=== PATIENT | male | born 2000 | race Caucasian/White ===

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

== ENCOUNTER 2021-05-10 11:51 | Emergency (ER) | payer OTHER, MEDICAID ==
[~2021-05-10] VITALS: Ht 177.8 cm; Wt 72.4 kg
[2021-05-10 11:52] VITALS: BP 137/93
[2021-05-10] MEDS ORDERED: SERT50TA29 (12:04)
[2021-05-10] MEDS ORDERED: BUSP5TA (12:04)
== END 2021-05-10 17:08 | disposition home or self-care (01) ==
LOC: M ED 11:51
DX: H57.02 Anisocoria (principal); F17.200 Nicotine dependence, unspecified, uncomplicated; F17.290 Nicotine dependence, other tobacco product, uncomplicated; F12.10 Cannabis abuse, uncomplicated; Z88.0 Allergy status to penicillin

== ENCOUNTER → 2021-07-25 | Outpatient (CLI) | payer OTHER, MEDICAID ==
[~2021-07-25] MED LIST: BUSP5TA; SERT50TA29
== END ==
LOC: M WUC 11:21
PROVIDERS: ATTEND Physician Assistant
DX: M25.521 Pain in right elbow (principal)

== ENCOUNTER 2023-05-03 02:25 | Emergency (ER) | payer OTHER, MEDICAID ==
[~2023-05-03] VITALS: Ht 180.3 cm; Wt 80.0 kg
[2023-05-03] MEDS ORDERED: DOXYCYCLINE HYCLATE 100 MG in D5W MINI-BAG PLUS 100 ML IV ONE (07:35)
[2023-05-03] MEDS ORDERED: metroNIDAZOLE 500 MG in IV 1 EA IV ONE (07:35)
[2023-05-03] MEDS ORDERED: LIDOCAINE W/EPINEPHRINE 1% 20ML VIAL SC ONE (07:40)
[2023-05-03] MEDS ORDERED: BACITRACIN OINTMENT 30GM TUBE TOP ONE (08:45)
[2023-05-03] MEDS ORDERED: DOXY-443 PO (09:28)
[2023-05-03] MEDS ORDERED: METR-369 PO (09:28)
[2023-05-03 10:29] VITALS: BP 138/94; TEMP 98; O2SAT 98
== END 2023-05-03 10:35 | disposition home or self-care (01) ==
LOC: M ED 02:25
DX: S01.501A Unspecified open wound of lip, initial encounter (principal); W54.0XXA Bitten by dog, initial encounter; Y92.9 Unspecified place or not applicable; Z88.0 Allergy status to penicillin; Z88.1 Allergy status to other antibiotic agents; F17.210 Nicotine dependence, cigarettes, uncomplicated
CPT/HCPCS: 96365; 96366; 96372; 99284; J1836

== ENCOUNTER 2023-05-05 15:57 | Emergency (ER) | payer OTHER, SELFPAY ==
[~2023-05-05] VITALS: Ht 182.9 cm; Wt 76.1 kg
[~2023-05-05 15:57] MED LIST changes: +DOXY-443 PO; +METR-369 PO
[2023-05-05] MEDS ORDERED: RABIES IMMUNE GLOBULIN 1500 INTERNATIONAL UNIT/5ML VIAL IM.IMMUN ONE ×2 (18:25→18:35)
[2023-05-05] MEDS ORDERED: RABIES VACCINE HUMAN 2.5 INTERNATIONAL UNITS/ML VIAL IM.IMMUN ONE (18:25)
[2023-05-05] MEDS ORDERED: DOXYCYCLINE HYCLATE 100MG TABLET PO ONE (18:40)
[2023-05-05] MEDS ORDERED: metroNIDAZOLE (FLAGYL) 500MG TABLET PO ONE (18:40)
[2023-05-05 19:33] VITALS: BP 151/90; TEMP 98.6; O2SAT 100
== END 2023-05-05 19:34 | disposition home or self-care (01) ==
LOC: M ED 15:57
DX: Z29.14 Encounter for prophylactic rabies immune globulin (principal)

== ENCOUNTER 2023-05-15 11:13 | Emergency (ER) | payer OTHER ==
[~2023-05-15] VITALS: Ht 180.3 cm; Wt 78.5 kg
[2023-05-15 11:14] VITALS: BP 116/64; TEMP 98.8; O2SAT 99
[2023-05-15] MEDS ORDERED: RABIES VACCINE HUMAN 2.5 INTERNATIONAL UNITS/ML VIAL IM ONE (11:25)
== END 2023-05-15 12:02 | disposition home or self-care (01) ==
LOC: M ED 11:13
DX: Z29.14 Encounter for prophylactic rabies immune globulin (principal); Z88.0 Allergy status to penicillin; Z88.1 Allergy status to other antibiotic agents; Z88.8 Allergy status to other drugs, medicaments and biological substances

== ENCOUNTER 2023-05-22 17:33 | Emergency (ER) | payer OTHER ==
[~2023-05-22] VITALS: Ht 182.9 cm; Wt 79.8 kg
[2023-05-22 19:57] VITALS: BP 111/74; TEMP 98.4; O2SAT 98
[2023-05-22] MEDS ORDERED: RABIES VACCINE HUMAN 2.5 INTERNATIONAL UNITS/ML VIAL IM ONE (20:15)
== END 2023-05-22 20:35 | disposition home or self-care (01) ==
LOC: M ED 17:33
DX: Z20.3 Contact with and (suspected) exposure to rabies (principal); F17.200 Nicotine dependence, unspecified, uncomplicated; Z88.0 Allergy status to penicillin; Z23 Encounter for immunization; Z29.14 Encounter for prophylactic rabies immune globulin

== ENCOUNTER 2023-08-04 00:24 | Emergency (ER) | payer MEDICAID, OTHER ==
[~2023-08-04] VITALS: Ht 182.9 cm; Wt 83.1 kg
[2023-08-04 00:24] VITALS: BP 155/87; TEMP 98; O2SAT 100
== END 2023-08-04 01:56 | disposition left against medical advice (07) ==
LOC: M ED 00:24
DX: Z53.21 Procedure and treatment not carried out due to patient leaving prior to being seen by health care provider (principal)